=== PATIENT | male | born 1975 | race Caucasian/White ===

== ENCOUNTER 2016-10-15 14:20 | Emergency (ER) | payer OTHER ==
[~2016-10-15] VITALS: Ht 177.8 cm; Wt 85.0 kg
[~2016-10-15 14:20] MED LIST: LORTA10 PO; NAPR550 PO; ORPH100T PO; VIBRID PO
[2016-10-15 14:26] VITALS: BP 156/90; PULSE 66; RESP 16; TEMP 98.6; O2SAT 98
[2016-10-15] MEDS ORDERED: PRED10PA PO (14:47)
[2016-10-15] MEDS ORDERED: ALPR.5 PO (14:47)
--- NOTE | 2016-10-15 15:24 | PD ---
HPI Chief Complaint: General Weakness Time Seen by Provider: 14:59 Travel History International Travel<30 days: No Contact w/Intl Traveler<30days: No Traveled to known affect area: No History of Present Illness HPI This patient complains of difficulty hearing and a fullness in both ears. He's had this for about a month. He went to an urgent care center week ago and got a prescription for Augmentin which he just completed. He is not feeling much better. No fever or cough or presyncopal symptoms. He was told that he had a middle ear infection. PFSH Past Medical History Asthma: Yes Bipolar Disorder: Yes Anxiety: Yes Depression: Yes Diminished Hearing: No Immunizations Current: Yes Tetanus Vaccination: < 5 Years Influenza Vaccination: No Past Surgical History Surgical History: No Previous Surgery Social History Alcohol Use: Yes (Occ.) Tobacco Use: Yes (Vaporizer) Substance Use: No Allergies-Medications (Allergen,Severity, Reaction): Coded Allergies: No Known Allergies (Verified , 10/15/16) Reported Meds & Prescriptions Reported Meds & Active Scripts Active Reported Prednisone (21) 10 mg tab Dose Pack (Prednisone) 10 Mg Pack 10 Mg PO DIRECTED Xanax (Alprazolam) 0.5 Mg Tab 0.5 Mg PO Q8H PRN Review of Systems General / Constitutional: No: Fever HENT: No: Headaches, Lightheadedness Respiratory: No: Cough Gastrointestinal: No: Abdominal Pain Physical Exam Narrative NECK: Symmetrical appearance, midline trachea. No mass or crepitus. Thyroid without enlargement, tenderness, or mass. RESPIRATORY: Respiratory effort unlabored, no retractions or use of accessory muscles. Breath sounds are clear and symmetric. SKIN: Inspection shows no rash or ulcers. Palpation shows no induration or nodules. Throat clear Both TMs have normal pisnao coloration and landmarks visible but have definitely clear fluid behind the drum. No erythema. Data Data Last Documented VS Vital Signs Date Time Temp Pulse Resp B/P Pulse Ox O2 Delivery O2 Flow Rate FiO2 10/15/16 14:45 18 98 Room Air 10/15/16 14:26 98.6 66 156/90 [facility] Medical Decision Making Medical Screen Exam Complete: Yes Emergency Medical Condition: Yes Medical Record Reviewed: Yes Differential Diagnosis Serous otitis, otitis media, cerumen impaction Narrative Course I have reviewed the patient's electronic medical record. Presentation is most consistent with a bilateral serous otitis. He just completed Augmentin I don't think he requires any further antibiotics. Suggested he try daily Claritin Has history of hypertension and advised to avoid decongestants Recommend primary care follow-up Diagnosis Primary Impression: Bilateral acute serous otitis media Qualified Code: H65.03 - Bilateral acute serous otitis media, recurrence not specified Additional Instructions: The patient was advised to follow up with their physician and return if they worsen. Trial of daily Claritin which is [id number] Med/Other Pt SpecificInfo: Other Disposition: 01 DISCHARGE HOME Condition: Stable Greg Dickey MD Oct 15, 2016 15:24
== END 2016-10-15 15:41 | disposition home or self-care (01) ==
LOC: PHED 14:20
DX: H65.03 Acute serous otitis media, bilateral (principal); J45.909 Unspecified asthma, uncomplicated
CPT/HCPCS: 99282